=== PATIENT | female | born 1960 | race Caucasian/White ===

== ENCOUNTER 2017-04-29 05:33 | Emergency (ER) | payer SELFPAY ==
[~2017-04-29] VITALS: Ht 157.5 cm; Wt 50.0 kg
[2017-04-29 05:44] VITALS: BP 154/88; PULSE 75; RESP 20; TEMP 97.6; O2SAT 98
[2017-04-29] MEDS ORDERED: ASPI-183 PO (05:46)
[2017-04-29] MEDS ORDERED: IBUP-232 PO (06:17)
--- NOTE | 2017-04-29 06:18 | PD ---
HPI Chief Complaint: Pain: Acute or Chronic Time Seen by Provider: 05:52 Travel History International Travel<30 days: No Contact w/Intl Traveler<30days: No Traveled to known affect area: No History of Present Illness HPI 56 years old female complains of generalized body pain and insomnia. Patient states that she has generalized body pain for the past 2 years. Patient states that the pain is aching pain diffuse over the whole body. Patient states the pain is worse for the past 4 days. Patient states that she has not been sleeping well for the past 4 days. Patient denies any headache. Patient denies any chest pain. Patient states that she had intermittent shortness of breath. Patient denies abdominal pain. Denies any nausea vomiting diarrhea. Patient denies any dysuria frequency. Patient denies any fever chills. PFSH Past Medical History Diminished Hearing: No Tetanus Vaccination: Unknown Influenza Vaccination: Yes ?: Not Dilation and Curettage (D&C): Yes Social History Alcohol Use: No Tobacco Use: Yes (1ppd) Substance Use: No Allergies-Medications (Allergen,Severity, Reaction): Coded Allergies: No Known Allergies (Unverified , 04/29/17) Reported Meds & Prescriptions Reported Meds & Active Scripts Active Reported Aspirin 325 Mg Tab 325 Mg PO TID PRN Review of Systems General / Constitutional: No: Fever Eyes: No: Visual changes HENT: No: Headaches Cardiovascular: No: Chest Pain or Discomfort Respiratory: No: Shortness of Breath Gastrointestinal: No: Abdominal Pain Genitourinary: No: Dysuria Musculoskeletal: Positive: Pain Skin: No Rash Neurologic: No: Weakness Psychiatric: No: Depression Endocrine: No: Polydipsia Hematologic/Lymphatic: No: Easy Bruising Physical Exam Narrative GENERAL: Well-nourished, well-developed patient. SKIN: Focused skin assessment warm/dry. HEAD: Normocephalic. EYES: No scleral icterus. No injection or drainage. NECK: Supple, trachea midline. No JVD or lymphadenopathy. CARDIOVASCULAR: Regular rate and rhythm without murmurs, gallops, or rubs. RESPIRATORY: Breath sounds equal bilaterally. No accessory muscle use. GASTROINTESTINAL: Abdomen soft, non-tender, nondistended. MUSCULOSKELETAL: No cyanosis, or edema. BACK: Nontender without obvious deformity. No CVA tenderness. Neurologic exam normal. Data Data Last Documented VS Vital Signs Date Time Temp Pulse Resp B/P (MAP) Pulse Ox O2 Delivery O2 Flow Rate FiO2 04/29/17 05:44 97.6 75 20 154/88 (110) 98 Room Air Orders Orders Complete Blood Count With Diff (04/29/17 06:09) Comprehensive Metabolic Panel (04/29/17 06:09) Urinalysis - C+S If Indicated (04/29/17 06:09) Thyroid Stimulating Hormone (04/29/17 06:09) Chest, Single Ap (04/29/17 06:09) Iv Access Insert/Monitor (04/29/17 06:09) Ecg Monitoring (04/29/17 06:09) Oximetry (04/29/17 06:09) MDM Medical Decision Making Medical Screen Exam Complete: Yes Emergency Medical Condition: Yes Differential Diagnosis Differential diagnosis including myalgia, arthralgia, electrolyte abnormality, thyroid problem, dehydration, collagen vascular disease. Narrative Course 56 years old female complaining generalized body pain and insomnia. Diagnosis Primary Impression: Arthralgia Qualified Codes: M25.50 - Pain in unspecified joint Patient Instructions: General Instructions Additional Instructions: Ibuprofen as needed for pain. Follow-up with local physician. Benadryl as needed for insomnia. Med/Other Pt SpecificInfo: Prescription(s) given Scripts Ibuprofen (Ibuprofen) 600 Mg Tab 600 MG PO TID for Pain, #60 TAB 0 Refills Prov: Soren Castillo MD 04/29/17 Disposition: 01 DISCHARGE HOME Condition: Stable Soren Castillo MD Apr 29, 2017 06:17
[2017-04-29 06:24] LABS: BASOPHIL # 0.1 TH/MM3 (0-0.2); BASOPHIL % 0.6 % (0.0-2.0); EOSINOPHIL # 0.1 TH/MM3 (0-0.4); EOSINOPHIL % 1.5 % (0.0-4.0); HEMOGLOBIN 15.6 GM/DL (11.6-15.3); LYMPHOCYTE # 1.5 TH/MM3 (1.0-4.8); MEAN CORPUSCULAR HEMOGLOBIN 30.9 PG (27.0-34.0); MEAN CORPUSCULAR HGB CONC 34.7 % (32.0-36.0); MEAN PLATELET VOLUME 8.6 FL (7.0-11.0); MONO % 5.4 % (0.0-8.0); MONOCYTE # 0.5 TH/MM3 (0-0.9); NEUT % 76.5 % (16.0-70.0); PLATELET COUNT 249 TH/MM3 (150-450); RED BLOOD COUNT 5.05 MIL/MM3 (4.00-5.30); RED CELL DISTRIBUTION WIDTH 14.3 % (11.6-17.2); WHITE BLOOD COUNT 9.1 TH/MM3 (4.0-11.0)
--- NOTE | 2017-04-29 06:31 | RADRPT ---
EXAM DATE/TIME: 04/29/2017 06:20 [facility] COMPARISON: No previous studies available for comparison. INDICATIONS : Shortness of breath, chest pains. MEDICAL HISTORY : None. SURGICAL HISTORY : None. ENCOUNTER: Initial ACUITY: 1 day PAIN SCORE: 2/10 LOCATION: Bilateral chest FINDINGS: Portable AP view of the chest demonstrates a normal-sized cardiac silhouette. No effusion, consolidat ion, or pneumothorax is visualized. The bones and soft tissues demonstrate no acute abnormality. CONCLUSION: No acute cardiopulmonary abnormality is identified. Lui Dyer MD on April 29, 2017 at 6:29 Board Certified Radiologist. This report was verified electronically.
[2017-04-29 06:37] LABS: ALBUMIN 4.2 GM/DL (3.4-5.0); ALT (GPT) 22 U/L (10-53); AST (GOT) 12 U/L (15-37); BICARBONATE 23.5 MEQ/L (21.0-32.0); BLOOD UREA NITROGEN 16 MG/DL (7-18); CALCIUM 9.3 MG/DL (8.5-10.1); CHLORIDE 112 MEQ/L (98-107); CREATININE 0.61 MG/DL (0.50-1.00); GLOMERULAR FILTRATION RATE 101 ML/MIN (>89); GLUCOSE,RANDOM 96 MG/DL (74-106); SODIUM (NA) 141 MEQ/L (136-145)
[2017-04-29 06:47] LABS: ALKALINE PHOSPHATASE 100 U/L (45-117); TOTAL BILIRUBIN ADULT 0.3 MG/DL (0.2-1.0); TOTAL PROTEIN 7.4 GM/DL (6.4-8.2)
[2017-04-29 06:54] LABS: BILIRUBIN, URINE NEG (NEG); BLOOD, URINE TRACE (NEG); CALCIUM OXALATE CRYSTALS,URINE MANY /hpf; GLUCOSE,URINE NEG (NEG); KETONE, URINE NEG (NEG); MUCUS URINE MANY /lpf (OCC); NITRITE,URINE NEG (NEG); SQUAMOUS EPITHELIAL CELL URINE 5 /hpf (0-5); URINE COLOR YELLOW (YELLW/STRAW); URINE LEUKOCYTE ESTERASE SMALL (NEG)
[2017-04-29 07:27] VITALS: BP 155/86
== END 2017-04-29 07:30 | disposition home or self-care (01) ==
LOC: NEPE 05:33
DX: M25.50 Pain in unspecified joint (principal); G47.00 Insomnia, unspecified; R06.02 Shortness of breath; Z72.0 Tobacco use
CPT/HCPCS: 71045; 80053; 81001; 84443; 85025; 99284